=== PATIENT | female | born 1975 | race Two or more races ===

== ENCOUNTER 2022-01-21 09:11 | Emergency (ER) | payer BC ==
[~2022-01-21] VITALS: Ht 157.5 cm; Wt 77.1 kg
--- NOTE | 2022-01-21 09:30 | NUR ---
"cough/congestion/fever/chill xcouple days- worse last noc"
--- NOTE | 2022-01-21 09:35 | NUR ---
AT BEDSIDE FOR EVAL
--- NOTE | 2022-01-21 09:39 | NUR ---
IT COMPLIANCE ANALYST AT BED SIDE
--- NOTE | 2022-01-21 09:50 | NUR ---
ESTABLISHED IV LINE 20G RIGHT AC
--- NOTE | 2022-01-21 09:50 | NUR ---
EMT AT BEDSIDE FOR EKG
[2022-01-21] MEDS ORDERED: IV NS 0.9% 1,000 ML BAG IV ONE (10:00)
[2022-01-21 10:10] LABS: BASOPHILS % (AUTO) 0.1 % (0.0-2.0); EOSINOPHILS % (AUTO) 2.1 % (0.0-6.0); HEMATOCRIT 36 % (33-45); HEMOGLOBIN 12.3 g/dL (11.5-14.8); LYMPHOCYTES # (AUTO) 0.4 K/uL (0.8-4.8); LYMPHOCYTES % (AUTO) 3.7 % (20.0-44.0); MEAN CORPUSCULAR HGB CONC 34 g/dl (31.0-36.0); MEAN CORPUSCULAR VOLUME 90 fL (82-100); MONOCYTES # (AUTO) 0.7 K/uL (0.1-1.30); MONOCYTES % (AUTO) 6.2 % (2.0-12.0); NEUTROPHILS # (AUTO) 10.1 K/uL (1.8-8.9); NEUTROPHILS % (AUTO) 87.9 % (43.0-81.0); PLATELET COUNT (AUTO) 275 K/uL (150-450); RED BLOOD CELL COUNT(AUTO) 4.02 MIL/uL (4.0-5.2); WHITE BLOOD COUNT (AUTO) 11.5 K/uL (4.3-11.0)
[2022-01-21 10:24] LABS: ALANINE AMINOTRANSFERASE 33 U/L (12-78); ALBUMIN 3.7 g/dL (3.4-5.0); ALKALINE PHOSPHATASE 59 U/L (46-116); ASPARTATE AMINOTRANSFERASE 20 U/L (15-37); BILIRUBIN,DIRECT 0.2 mg/dL (0.0-0.2); BILIRUBIN,TOTAL 0.7 mg/dL (0.2-1.0); CALCIUM, SERUM 8.6 mg/dL (8.5-10.1); CARBON DIOXIDE 25 mmol/L (21-32); CHLORIDE 103 mmol/L (98-107); CREATININE 0.8 mg/dL (0.6-1.3); GLUCOSE 103 mg/dL (74-106); POTASSIUM 3.4 mmol/L (3.5-5.1); SODIUM SERUM 137 mmol/L (136-145); TOTAL PROTEIN, SERUM 7.2 g/dL (6.4-8.2); UREA NITROGEN, BLOOD 8 mg/dL (7-18)
[2022-01-21] MEDS ORDERED: OSEL75CA PO (11:48)
[2022-01-21] MEDS ORDERED: ACETAMINOPHEN ES 500 MG TABLET ONE (11:54)
[2022-01-21] MEDS ORDERED: ACETAMINOPHEN ES 500 MG TABLET PO ONE (12:00)
[2022-01-21 12:14] VITALS: BP 97/52
--- NOTE | 2022-01-21 12:14 | NUR ---
Patient discharged to home in stable condition. Written and verbal after care instructions given. Patient verbalizes understanding of instruction.
--- NOTE | 2022-01-21 12:14 | NUR ---
IV removed. Catheter intact and site benign. Pressure and 4x4 applied to site. No bleeding noted.
== END 2022-01-21 12:17 | disposition home or self-care (01) ==
LOC: ER 09:11
DX: J10.1 Influenza due to other identified influenza virus with other respiratory manifestations (principal); R00.0 Tachycardia, unspecified; J45.909 Unspecified asthma, uncomplicated; Z20.822 Contact with and (suspected) exposure to COVID-19
CPT/HCPCS: 99285; 96360; 71045; 96361; 87426; 93005; 87804; 84145; 85025; 80048; 87040 ×2; 83605; 80076; 36415; 84484; 85730; J7030; C9803

== ENCOUNTER 2022-01-23 17:33 | Emergency (ER) | payer BC ==
[~2022-01-23] VITALS: Ht 165.1 cm; Wt 74.4 kg
[~2022-01-23 17:33] MED LIST: OSEL75CA PO
--- NOTE | 2022-01-23 17:50 | NUR ---
CAME BACK FOR WORSENING FLU SYMPTOMS OF VOMITING, DIARRHEA, SEEN 2 DAYS AGO POSITIVE FOR INFLUENZA. AMBULATORY, PLACED ON BED, BREATHING EVEN AND UNLABORED SATURATING AT 98%RA
[2022-01-23] MEDS ORDERED: KETOROLAC TROMETHAMINE 15 MG/ML VIAL ONE (18:24)
[2022-01-23] MEDS ORDERED: ONDANSETRON HCL/PF 4 MG/2 ML VIAL ONE (18:24)
[2022-01-23] MEDS ORDERED: KETOROLAC TROMETHAMINE INJ 30 MG/ML VIAL IV ONE (18:30)
[2022-01-23] MEDS ORDERED: ONDANSETRON HCL/PF 4 MG/2 ML VIAL IV ONE (18:30)
[2022-01-23] MEDS ORDERED: IV NS 0.9% 1,000 ML IV ONE ×3 (18:30→21:00)
--- NOTE | 2022-01-23 18:30 | NUR ---
BLOOD DRAWN AND SENT TO LAB
[2022-01-23 19:20] LABS: BILIRUBIN,URINE 2+ (NEGATIVE); COLOR,URINE YELLOW (YELLOW); LEUKOCYTE ESTERASE ,URINE TRACE (NEGATIVE); NITRITE, URINE NEGATIVE (NEGATIVE); PROTEIN,URINE TRACE mg/dl (NEGATIVE); UGLUCOSE NEGATIVE (NEGATIVE); UROBILINOGEN,URINE 0.2 EU/dL (0.2)
[2022-01-23 19:22] LABS: CREATININE 0.8 mg/dL (0.6-1.3); POTASSIUM 3.3 mmol/L (3.5-5.1)
[2022-01-23 19:30] LABS: BACTERIA,URINE Rare /HPF (None Seen); RBC,URINE 0-2 /HPF (0-2); SQUAMOUS EPITHELIAL CELL,UR Few /HPF (None Seen)
[2022-01-23 19:59] LABS: BASOPHILS % (AUTO) 0.2 % (0.0-2.0); EOSINOPHILS % (AUTO) 5.7 % (0.0-6.0); HEMATOCRIT 40 % (33-45); HEMOGLOBIN 13.5 g/dL (11.5-14.8); LYMPHOCYTES # (AUTO) 1.6 K/uL (0.8-4.8); LYMPHOCYTES % (AUTO) 19.6 % (20.0-44.0); MEAN CORPUSCULAR HGB CONC 34 g/dl (31.0-36.0); MEAN CORPUSCULAR VOLUME 90 fL (82-100); MONOCYTES # (AUTO) 0.7 K/uL (0.1-1.30); MONOCYTES % (AUTO) 8.3 % (2.0-12.0); NEUTROPHILS # (AUTO) 5.4 K/uL (1.8-8.9); NEUTROPHILS % (AUTO) 66.2 % (43.0-81.0); PLATELET COUNT (AUTO) 320 K/uL (150-450); RED BLOOD CELL COUNT(AUTO) 4.48 MIL/uL (4.0-5.2); WHITE BLOOD COUNT (AUTO) 8.2 K/uL (4.3-11.0)
[2022-01-23] MEDS ORDERED: diphenhydrAMINE HCL 50 MG/ML VIAL ONE (20:22)
[2022-01-23] MEDS ORDERED: PROCHLORPERAZINE EDISYLATE 10 MG/2 ML VIAL ONE (20:22)
[2022-01-23] MEDS ORDERED: diphenhydrAMINE HCL 50 MG/ML VIAL IV ONE (20:30)
[2022-01-23] MEDS ORDERED: PROCHLORPERAZINE EDISYLATE 10 MG/2 ML VIAL IVP ONE (20:30)
[2022-01-23] MEDS ORDERED: ONDA4TAB5 PO (22:58)
[2022-01-23 23:24] VITALS: BP 120/75
--- NOTE | 2022-01-23 23:24 | NUR ---
IV removed. Catheter intact and site benign. Pressure and 4x4 applied to site. No bleeding noted.Patient discharged to home in stable condition. Written and verbal after care instructions given. Patient verbalizes understanding of instruction.
== END 2022-01-23 23:24 | disposition home or self-care (01) ==
LOC: ER 17:36
DX: J10.1 Influenza due to other identified influenza virus with other respiratory manifestations (principal); R11.2 Nausea with vomiting, unspecified; J45.909 Unspecified asthma, uncomplicated; Z79.899 Other long term (current) drug therapy
CPT/HCPCS: 99284; 96374; 96375; 96361; 85025; 80048; 84703; 81001; 36415; J0780; J1200; J2405; J7030; J1885

== ENCOUNTER 2022-06-01 20:39 | Emergency (ER) | payer BC ==
[~2022-06-01] VITALS: Ht 152.4 cm; Wt 72.6 kg
[~2022-06-01 20:39] MED LIST changes: +ONDA4TAB5 PO
--- NOTE | 2022-06-01 21:24 | NUR ---
BIB FOR C/O HEAVY VAGINAL BLEEDING X2 WEEKS. PT AAOX4. PLACED COMFORTABLY IN BED, VITALS CHECKED.
--- NOTE | 2022-06-01 22:02 | NUR ---
20GA TO LAC ESTABLISHED
--- NOTE | 2022-06-01 22:03 | NUR ---
BLOOD WORK COLLECTED AND SENT TO LAB
--- NOTE | 2022-06-01 22:03 | NUR ---
URINE COLLECTED AND SENT TO LAB.
[2022-06-01] MEDS ORDERED: ONDANSETRON 4 MG TAB.RAPDIS ONE (22:11)
[2022-06-01] MEDS ORDERED: ONDANSETRON 4 MG TAB.RAPDIS SL ONE (22:30)
[2022-06-01 22:33] LABS: BASOPHILS % (AUTO) 0.4 % (0.0-2.0); EOSINOPHILS % (AUTO) 3.6 % (0.0-6.0); HEMATOCRIT 35 % (33-45); HEMOGLOBIN 11.7 g/dL (11.5-14.8); LYMPHOCYTES # (AUTO) 2.5 K/uL (0.8-4.8); LYMPHOCYTES % (AUTO) 30.6 % (20.0-44.0); MEAN CORPUSCULAR HGB CONC 33 g/dl (31.0-36.0); MEAN CORPUSCULAR VOLUME 89 fL (82-100); MONOCYTES # (AUTO) 0.6 K/uL (0.1-1.30); MONOCYTES % (AUTO) 7.2 % (2.0-12.0); NEUTROPHILS # (AUTO) 4.8 K/uL (1.8-8.9); NEUTROPHILS % (AUTO) 58.2 % (43.0-81.0); PLATELET COUNT (AUTO) 314 K/uL (150-450); RED BLOOD CELL COUNT(AUTO) 3.96 MIL/uL (4.0-5.2); WHITE BLOOD COUNT (AUTO) 8.3 K/uL (4.3-11.0)
[2022-06-01 22:43] LABS: BILIRUBIN,URINE NEGATIVE (NEGATIVE); COLOR,URINE RED (YELLOW); LEUKOCYTE ESTERASE ,URINE TRACE (NEGATIVE); NITRITE, URINE POSITIVE (NEGATIVE); PH,URINE 6.5 (5.0-8.0); PROTEIN,URINE 2+ mg/dl (NEGATIVE); UGLUCOSE NEGATIVE (NEGATIVE)
[2022-06-01 22:57] LABS: BACTERIA,URINE Moderate /HPF (None Seen); RBC,URINE TOO NUMEROUS TO COUN /HPF (0-2); SQUAMOUS EPITHELIAL CELL,UR Rare /HPF (None Seen)
[2022-06-01 23:15] LABS: ALBUMIN 3.5 g/dL (3.4-5.0); BILIRUBIN,DIRECT 0.1 mg/dL (0.0-0.2); BILIRUBIN,TOTAL 0.4 mg/dL (0.2-1.0); CALCIUM, SERUM 8.7 mg/dL (8.5-10.1); CREATININE 0.7 mg/dL (0.6-1.3); TOTAL PROTEIN, SERUM 6.9 g/dL (6.4-8.2)
[2022-06-01 23:21] LABS: POTASSIUM 3.5 mmol/L (3.5-5.1)
[2022-06-01] MEDS ORDERED: FLUC150T PO (23:34)
[2022-06-01] MEDS ORDERED: NITR100C6 PO (23:34)
[2022-06-01] MEDS ORDERED: ONDA4TAB11 PO (23:34)
[2022-06-01 23:43] VITALS: BP 122/77
--- NOTE | 2022-06-01 23:43 | NUR ---
Patient discharged to home in stable condition. Written and verbal after care instructions given. Patient verbalizes understanding of instruction.IV removed. Catheter intact and site benign. Pressure and 4x4 applied to site. No bleeding noted.
== END 2022-06-01 23:43 | disposition home or self-care (01) ==
LOC: ER 20:41
DX: N39.0 Urinary tract infection, site not specified (principal); N93.9 Abnormal uterine and vaginal bleeding, unspecified; R11.0 Nausea; J45.909 Unspecified asthma, uncomplicated
CPT/HCPCS: 99283; 85025; 80048; 87086; 80076; 84703; 81001; 36415; Q0162